=== PATIENT | male | born 1965 | race Caucasian/White ===

== ENCOUNTER 2023-10-09 12:31 | Emergency (ER) | payer BC, SELFPAY ==
[2023-10-09 13:17] VITALS: BP 162/95; PULSE 77; RESP 18; TEMP 36.1; O2SAT 97
--- NOTE | 2023-10-09 14:15 | ED.URI ---
HPI - URI/Sore Throat General Chief Complaint: Upper Respiratory Infection Stated Complaint: Sinus Time Seen by Provider: 10/09/23 14:15 Source: patient and RN notes reviewed Mode of arrival: ambulatory Limitations: no limitations History of Present Illness HPI Narrative: 58-year-old male presents concern for 2 week history of sinus congestion, drainage, cough, chest congestion and tightness. Reports cough is productive. He reports he is taking [id number] medications relief. MD elicited complaint: cough and nasal congestion Related Data Home Medications Medication Instructions Recorded Confirmed lisinopril 10 mg tablet 5 mg PO DAILY 10/09/23 10/09/23 metformin 500 mg tablet,extended 500 mg PO BID 10/09/23 10/09/23 release 24 hr metoprolol succinate 50 mg 50 mg PO DAILY 10/09/23 10/09/23 tablet,extended release 24 hr omeprazole 40 mg capsule,delayed 40 mg PO DAILY 10/09/23 10/09/23 release rosuvastatin 5 mg tablet 5 mg PO DAILY 10/09/23 10/09/23 Allergies Allergy/AdvReac Type Severity Reaction Status Date / Time lincomycin Allergy Unknown Unknown Verified 10/09/23 13:31 Penicillins Allergy Unknown Unknown Verified 10/09/23 13:31 Review of Systems Review of Systems: CONSTITUTIONAL: Denies malaise, chills, sweats, or fever. EYES: Denies visual changes, redness, or discharge. ENT: Reports rhinorrhea, congestion, sinus pain CARDIOVASCULAR: Denies chest pain, palpitations, or edema. RESPIRATORY: Reports productive cough. Denies dyspnea. GASTROINTESTINAL: Denies abdominal pain, nausea, vomiting, diarrhea SKIN: Denies rash or itching. MUSCULOSKELETAL: Denies myalgia. NEUROLOGIC: Denies headache. All systems reviewed & are unremarkable except as noted in HPI and below PMFSH Family History Family History (Updated 05/31/14 @ 07:13 by DOCTOR UNKNOWN) Mother Asthma Other Malignant neoplasm of prostate Social History Social History Smoking status: Never smoker Alcohol intake: never Comments At time of signature, agree with nursing past medical, surgical, social and family history. There is no relevant family history pertinent to the presenting complaint Exam Narrative: GENERAL: Well-appearing, well-nourished, and in no acute distress. HEAD: Normocephalic EYES: PERRLA, conjunctivae clear ENT: Nares clear, turbinates edematous and erythematous, clear discharge. Mucous membranes moist. 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 Oropharynx not erythematous without lesions. Tonsils not enlarged and without exudate, no drooling, no hoarseness, no trismus, uvula midline. NECK: Supple. No lymphadenopathy CHEST: Clear to auscultation, breath sounds equal. No wheezing, rhonchi, rales, or stridor. No respiratory distress, speaks in full sentences. HEART: Regular rate and rhythm. No murmur heard. SKIN: Warm, dry, no rash. NEURO: Alert and oriented x3. PSYCH: Normal mood and affect Course Course Emergency Course: Patient is aware of diagnosis, understands and agrees to treatment plan. Anticipatory guidance given. Patient agrees to follow-up as directed and is aware of reasons to seek care at the emergency department. Portions of this record may have been created with voice recognition software Level of Care: Express Care Visit Vital Signs Vital signs: Vital Signs Temperature 96.9 F L 10/09/23 13:17 Pulse Rate 77 10/09/23 13:17 Respiratory Rate 18 10/09/23 13:17 Blood Pressure 162/95 H 10/09/23 13:17 Pulse Oximetry 97 10/09/23 13:17 Oxygen Delivery Room Air 10/09/23 13:17 Temperature 96.9 F L 10/09/23 13:17 Pulse Rate 77 10/09/23 13:17 Respiratory Rate 18 10/09/23 13:17 Blood Pressure 162/95 H 10/09/23 13:17 Pulse Oximetry 97 10/09/23 13:17 Oxygen Delivery Room Air 10/09/23 13:17 Reviewed. MDM - URI/Sore Throat MDM Narrative Medical decision making narrative: Differential diagnosis considered: Butcher vi
== END 2023-10-09 14:25 | disposition home or self-care (01) ==
PROVIDERS: Emergency Provider Nurse Practitioner; PCP Family Medicine
DX: J32.9 Chronic sinusitis, unspecified (principal); J40 Bronchitis, not specified as acute or chronic; E78.00 Pure hypercholesterolemia, unspecified; I10 Essential (primary) hypertension; K21.9 Gastro-esophageal reflux disease without esophagitis; E11.9 Type 2 diabetes mellitus without complications
CPT/HCPCS: 99213; G0463

== ENCOUNTER 2024-02-13 15:38 | Emergency (ER) | payer BC, SELFPAY ==
[2024-02-13 15:54] VITALS: BP 137/87; PULSE 89; RESP 20; TEMP 36.6; O2SAT 97
--- NOTE | 2024-02-13 17:48 | ED.GENADULT ---
HPI - General Adult General Chief complaint: Upper Respiratory Infection Stated complaint: cough,chest discomfort Source: patient Mode of arrival: ambulatory Limitations: no limitations History of Present Illness HPI narrative: Patient presents for evaluation of a cough. He initially informed me that he has had symptoms for about 2 months. He later told me that he was seen here for his symptoms recently. Upon chart review it appears he was seen here in October of this year. He was diagnosed with sinobronchitis and was given scripts for medrol dose mikey and a zpak, both of which he took as directed. He states he had mild improvement in his symptoms with recurrence thereafter. He indicates he received a 2nd Z-Mikey from his primary care office and was also given cefdinir. Cefdinir seemed to help his symptoms most however he had recurrence thereafter. He states cough is mostly nonproductive. He has some mild SOB and a burning sensation in his chest. He believes his symptoms are 2/2 bronchitis, which he gets every year. He denies any fever, nausea, vomiting, sore throat, sinus symptoms and chest pain. He had a chest x-ray which was normal. He also had a CT chest and he indicates that he was told the CT showed bronchitis . Of note, he shows me a message from his PCP on his phone that indicated pt would receive a noncontrast CT. 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 He states he PE's occurred postoperatively and he is not sure whether he had a coagulopathy workup. He is not aware of anyone else in his family who has had a DVT or PE. He has chronic BLE swelling. He is currently on lisinopril. Related Data Home Medications Medication Instructions Recorded Confirmed lisinopril 10 mg tablet 5 mg PO DAILY 10/09/23 02/13/24 metformin 500 mg tablet,extended 500 mg PO BID 10/09/23 02/13/24 release 24 hr metoprolol succinate 50 mg 50 mg PO DAILY 10/09/23 02/13/24 tablet,extended release 24 hr omeprazole 40 mg capsule,delayed 40 mg PO DAILY 10/09/23 02/13/24 release albuterol 90 mcg-budesonide 80 2 inh inhalation QID 02/13/24 02/13/24 mcg/actuation HFA aerosol inhaler (Airsupra) budesonide-formoterol HFA 80 2 puff inhalation BID 02/13/24 02/13/24 mcg-4.5 mcg/actuation aerosol inhaler (Breyna) Allergies Allergy/AdvReac Type Severity Reaction Status Date / Time lincomycin Allergy Unknown Unknown Verified 02/13/24 15:45 Penicillins Allergy Unknown Unknown Verified 02/13/24 15:45 Review of Systems Review of Systems: CONSTITUTIONAL: Denies fever, chills, or sweats. EYES: Denies visual changes, redness, or discharge. ENT: Denies rhinorrhea, congestion, sore throat, or otalgia. CARDIOVASCULAR: Denies chest pain, palpitations, or edema. RESPIRATORY: Reports cough, mild SOB and burning sensation in his chest GASTROINTESTINAL: Denies abdominal pain, nausea, vomiting, or diarrhea. GENITOURINARY: Denies dysuria or hematuria. SKIN: Denies rash or itching. MUSCULOSKELETAL: Denies back pain, joint pain, or myalgia. NEUROLOGIC: Denies headache, numbness, dizziness, or weakness. PSYCHIATRIC: Denies anxiety or depression. PMFSH Past Medical History Medical History Hypertension Saddle pulmonary embolus Surgical History Surgical History Surgical history unknown Family History Family History Mother Asthma Other Malignant neoplasm of prostate Social History Social History Smoking status: Never smoker Alcohol intake: never Gender identity (if verbalized by the patient): Male Exam Narrative: GENERAL: Well-appearing, well-nourished, and in no acute distress. HEAD: Normocephalic, atraumatic. EYES: PERRLA and EOMI. ENT: Nares
== END 2024-02-13 17:40 | disposition short-term general hospital (02) ==
PROVIDERS: Emergency Provider Nurse Practitioner; PCP Family Medicine
DX: R05.9 Cough, unspecified (principal); Z86.711 Personal history of pulmonary embolism; I10 Essential (primary) hypertension
CPT/HCPCS: 71046; 99212; G0463